=== PATIENT | female | born 1980 | race Caucasian/White ===

== ENCOUNTER → 2017-07-22 | Emergency (ER) | payer BC ==
[~2017-07-22] VITALS: Ht 162.6 cm; Wt 97.4 kg
[~2017-07-22] MED LIST: CYCL-319 PO; CYCL5TAB PO; GABA300C16 PO; IBUP-1542 PO; KETOROLAC 30 MG INJ IM STA; NAPR-260 PO
[2017-07-22 19:58] VITALS: Ht 162.6 cm; Wt 97.4 kg
[2017-07-22 21:38] LABS: URINE BLOOD (Dip) POC Negative (NEGATIVE)
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
[2017-07-22 23:23] VITALS: BP 138/72; PULSE 78; RESP 20; TEMP 98.3
== END | disposition home or self-care (01) ==
LOC: FTE 19:49
DX: M54.5 Low back pain (principal)
CPT/HCPCS: 72100; 81003; J1885; 96372

== ENCOUNTER 2018-11-30 21:52 | Emergency (ER) | payer BC ==
[~2018-11-30] VITALS: Ht 157.5 cm; Wt 82.4 kg
[~2018-11-30 21:52] MED LIST changes: -CYCL-319 PO; +CYCL10TA7 PO; -KETOROLAC 30 MG INJ IM STA; -NAPR-260 PO; +NAPR-985 PO
[2018-11-30 22:06] VITALS: BP 199/110; PULSE 106; RESP 26; Ht 157.5 cm; Wt 82.4 kg
== END 2018-12-01 01:10 | disposition left against medical advice (07) ==
LOC: E/R 21:52
DX: Z53.21 Procedure and treatment not carried out due to patient leaving prior to being seen by health care provider (principal)